=== PATIENT | female | born 1990 | race Caucasian/White ===

== ENCOUNTER 2017-06-23 18:59 | Outpatient (CLI) | payer MEDICAID ==
[2017-06-23] MEDS: ONDANSETRON 4 MG ORAL DISINTEGRATING TAB (S0181) SL (21:46)
== END 2017-06-23 22:35 | disposition home or self-care (01) ==
LOC: M LDO 18:59
DX: O99.89 Other specified diseases and conditions complicating pregnancy, childbirth and the puerperium (principal); Z3A.34 34 weeks gestation of pregnancy; R11.2 Nausea with vomiting, unspecified; R19.7 Diarrhea, unspecified
CPT/HCPCS: 59025

== ENCOUNTER → 2017-07-06 | Outpatient (REF) | payer BC | LOC: M LAB REF 12:56 | DX: Z34.83 Encounter for supervision of other normal pregnancy, third trimester (principal) ==

== ENCOUNTER → 2017-07-11 | Outpatient (CLI) | payer BC, MEDICAID ==
[2017-07-11 13:51] LABS: BASO % 0.2 % (0.0-1.0); EOS # 0.1 10^3/uL (0.0-0.50); EOS % 0.8 % (0.0-3.0); HEMATOCRIT 35.3 % (36.0-47.0); HEMOGLOBIN 11.3 g/dl (12.0-16.0); IMMATURE GRANULOCYTE % 0.4 % (0-3.0); LYMPH # 1.6 10^3/uL (1.5-6.5); LYMPH % 13.5 % (24.0-44.0); MEAN CORPUSCULAR HEMOGLOBIN 26.8 pg (27.0-33.0); MEAN CORPUSCULAR VOLUME 83.6 fl (80.0-96.0); MONO # 0.7 10^3/uL (0.0-0.8); MONO % 5.9 % (0.0-5.0); NEUTROPHILS # 9.1 10^3/uL (1.8-7.7); NEUTROPHILS % 79.2 % (36.0-66.0); PLATELET COUNT, AUTOMATED 244 10^3/uL (150-450); RED BLOOD COUNT 4.22 10^6/uL (4.00-5.40); RED CELL DISTRIBUTION WIDTH 15.6 % (11.5-14.5); WHITE BLOOD COUNT 11.5 10^3/uL (4.0-10.0)
[2017-07-11 14:15] LABS: RUBELLA IgG QUALITATIVE IMMUNE (IMMUNE)
[2017-07-11 14:18] LABS: GLUCOSE CHALLENGE TEST 1 HOUR 98 MG/DL (LESS THAN 140); HBsAg Prenatal NEGATIVE (NEGATIVE)
[2017-07-11 14:45] LABS: HEPATITIS C VIRUS ABY INDEX < 0.0 INDEX (<0.8)
[2017-07-11 14:46] LABS: HIV 1&2 SCREEN CENTAUR NEGATIVE (NEGATIVE)
== END ==
LOC: M SMT 10:14
DX: Z34.83 Encounter for supervision of other normal pregnancy, third trimester (principal)
CPT/HCPCS: 82950

== ENCOUNTER → 2017-11-29 | Outpatient (CLI) | payer OTHER | LOC: M LRY 16:55 | DX: M79.672 Pain in left foot (principal); R31.9 Hematuria, unspecified | CPT/HCPCS: 73630 ==

== ENCOUNTER → 2017-11-29 | Outpatient (REF) | payer OTHER | LOC: M SFHCLERA 16:50 | DX: R31.9 Hematuria, unspecified (principal) ==

== ENCOUNTER 2019-03-02 10:10 | Emergency (ER) | payer OTHER ==
[~2019-03-02] VITALS: Ht 162.6 cm; Wt 85.0 kg
[~2019-03-02 10:10] MED LIST: COLA100C5 PO; IBUP80TA PO; OXYC1TAB23 PO; PREN1TAB11 PO; RANI15TA PO; ROBI1LIQ PO; ZOFR4TAB14 PO
[2019-03-02] MEDS ORDERED: IBUPROFEN 800 MG TAB PO ONE (11:45)
[2019-03-02 12:49] LABS: BASO # 0.1 10^3/uL (0.0-0.2); BASO % 0.6 % (0.0-1.0); EOS # 0.2 10^3/uL (0.0-0.5); EOS % 2.3 % (0.0-3.0); HEMATOCRIT 45.5 % (36.0-47.0); HEMOGLOBIN 14.7 g/dl (12.0-15.5); LYMPH # 1.9 10^3/uL (1.5-5.0); LYMPH % 23.7 % (24.0-44.0); MEAN CORPUSCULAR HEMOGLOBIN 28.6 pg (27.0-33.0); MEAN CORPUSCULAR HGB CONC 32.3 g/dl (32.0-36.5); MEAN CORPUSCULAR VOLUME 88.5 fl (80.0-96.0); MONO # 0.4 10^3/uL (0.0-0.8); MONO % 5.6 % (0.0-5.0); NEUTROPHILS # 5.3 10^3/uL (1.5-8.5); NEUTROPHILS % 67.5 % (36.0-66.0); PLATELET COUNT, AUTOMATED 238 10^3/uL (150-450); RED BLOOD COUNT 5.14 10^6/uL (4.00-5.40); WHITE BLOOD COUNT 7.9 10^3/uL (4.0-10.0)
[2019-03-02 13:10] LABS: HCG, SERUM QUALITATIVE NEGATIVE (NEGATIVE)
[2019-03-02 13:16] LABS: ALBUMIN 4.2 GM/DL (3.2-5.2); ALT/SGPT 22 U/L (12-78); BILIRUBIN,DIRECT < 0.1 MG/DL (0.0-0.2); BILIRUBIN,TOTAL 0.4 MG/DL (0.2-1.0); BLOOD UREA NITROGEN 9 MG/DL (7-18); CALCIUM LEVEL 8.9 MG/DL (8.5-10.1); CARBON DIOXIDE LEVEL 27 MEQ/L (21-32); CHLORIDE LEVEL 107 MEQ/L (98-107); CREATININE FOR GFR 0.79 MG/DL (0.55-1.30); GLOMERULAR FILTRATION RATE > 60.0 (>60); GLUCOSE, FASTING 95 MG/DL (70-100); POTASSIUM SERUM 3.8 MEQ/L (3.5-5.1); SALICYLATE LEVEL 3.7 MG/DL (5.0-30.0); SODIUM LEVEL 140 MEQ/L (136-145); THYROID STIMULATING HORMONE 0.702 uIU/ML (0.358-3.740); TOTAL PROTEIN 7.5 GM/DL (6.4-8.2)
[2019-03-02 13:17] LABS: ACETAMINOPHEN LEVEL < 2.0 UG/ML (10.0-30.0); ETHYL ALCOHOL (ETHANOL) < 0.003 % (0.000-0.010)
[2019-03-02 13:40] LABS: AMPHETAMINES LEVEL URINE NEGATIVE (NEGATIVE); BARBITURATES URINE NEGATIVE (NEGATIVE); BENZODIAZEPINES URINE NEGATIVE (NEGATIVE); CANNABINOIDS URINE POSITIVE (NEGATIVE); COCAINE METABOLITE URINE NEGATIVE (NEGATIVE); METHADONE URINE NEGATIVE (NEGATIVE); OPIATES URINE NEGATIVE (NEGATIVE); PHENCYCLIDINE URINE NEGATIVE (NEGATIVE)
[2019-03-02 14:46] VITALS: BP 138/81
--- NOTE | 2019-03-02 19:10 | ECGEPIP ---
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
== END 2019-03-02 14:51 | disposition home or self-care (01) ==
LOC: M ED 10:10
DX: F33.9 Major depressive disorder, recurrent, unspecified (principal); T23.102A Burn of first degree of left hand, unspecified site, initial encounter; X12.XXXA Contact with other hot fluids, initial encounter; Y92.89 Other specified places as the place of occurrence of the external cause; F17.210 Nicotine dependence, cigarettes, uncomplicated
CPT/HCPCS: 36415; 80048; 80076; 80307; 84443; 84703; 85025; 93005; 99284; G0480

== ENCOUNTER → 2019-06-08 | Outpatient (REF) | payer OTHER, MEDICAID ==
[2019-06-08 14:10] LABS: HEMATOCRIT 47.9 % (36.0-47.0); HEMOGLOBIN 15.4 g/dl (12.0-15.5); MEAN CORPUSCULAR HEMOGLOBIN 28.4 pg (27.0-33.0); MEAN CORPUSCULAR HGB CONC 32.2 g/dl (32.0-36.5); MEAN CORPUSCULAR VOLUME 88.2 fl (80.0-96.0); PLATELET COUNT, AUTOMATED 225 10^3/uL (150-450); RED BLOOD COUNT 5.43 10^6/uL (4.00-5.40)
[2019-06-08 14:28] LABS: BLOOD UREA NITROGEN 12 MG/DL (7-18); CALCIUM LEVEL 9.6 MG/DL (8.5-10.1); CARBON DIOXIDE LEVEL 30 MEQ/L (21-32); CHLORIDE LEVEL 105 MEQ/L (98-107); CREATININE FOR GFR 0.77 MG/DL (0.55-1.30); GLOMERULAR FILTRATION RATE > 60.0 (>60); GLUCOSE, FASTING 80 MG/DL (70-100); POTASSIUM SERUM 4.2 MEQ/L (3.5-5.1); SODIUM LEVEL 139 MEQ/L (136-145)
[2019-06-08 14:29] LABS: ALBUMIN 4.7 GM/DL (3.2-5.2); ALT/SGPT 15 U/L (12-78); BILIRUBIN,TOTAL 0.7 MG/DL (0.2-1.0); THYROID STIMULATING HORMONE 0.673 uIU/ML (0.358-3.740); TOTAL PROTEIN 7.7 GM/DL (6.4-8.2)
== END ==
LOC: M SFHCPLAZ 10:10
PROVIDERS: ATTEND Nurse Practitioner Adult Health
DX: Z82.0 Family history of epilepsy and other diseases of the nervous system (principal); R53.1 Weakness

== ENCOUNTER → 2019-08-20 | Outpatient (CLI) | payer OTHER, MEDICAID ==
[2019-08-20 17:31] LABS: BLOOD UREA NITROGEN 9 MG/DL (7-18); GLOMERULAR FILTRATION RATE > 60.0 (>60); RHEUMATOID FACTOR QUANT < 10.0 IU/ML (<15.0)
[2019-08-20 17:42] LABS: FOLATE 12.8 NG/ML (>5.4); VITAMIN B12 LEVEL 281 PG/ML (247-911)
[2019-08-21 10:31] LABS: DRVV SCREEN 41.5 SEC
== END ==
LOC: M WUC 14:51
PROVIDERS: ATTEND Psychiatry & Neurology Neurology
DX: G35 Multiple sclerosis (principal)

== ENCOUNTER → 2019-10-26 | Outpatient (CLI) | payer OTHER, MEDICAID ==
--- NOTE | 2019-11-02 06:01 | ECWPNPC ---
PATIENT NAME: SABINE OKEEFE : 1990 GENDER: FEMALE VISIT DATE: 10/26/2019 DISCHARGE DATE: 10/26/19 1613 VISIT LOCKED DATE TIME: PHYSICIAN: ROGELIO SILVA MD RESOURCE: ROGELIO SILVA MD REASON FOR APPOINTMENT 1. PRE SEDATE- SPINAL TAP, PAT DONE HISTORY OF PRESENT ILLNESS GENERAL: 28-YEAR-OLD FEMALE PATIENT WITH A HISTORY OF MULTIPLE SCLEROSIS. THE PATIENT WAS REFERRED TO OUR FACILITY BY DR. MEADOWS FROM [facility] TO CONSIDER A SPINAL TAP. THE PATIENT HAS BEEN SUFFERING FROM SYMPTOMS SINCE 2009. THESE SYMPTOMS INCLUDE HEADACHES, BURRED VISION, BACK OUTS, LEG SPASMS, CRAMPS AND PAIN. THE PATIENT REPORTS MAINLY TINGLING OVER HER LEFT ARM AND LEFT LEG. PATIENT DENIES UNEXPLAINABLE WEIGHT LOSS, FEVER, CHILLS, NEW CHANGES ON HER URINARY OR BOWEL CONTROL. FALL RISK SCREENING: SCREENING :ONE FALL WITH INJURY IN THE PAST YEAR JANUARY - FELL IN SHOWER, HIT HEAD AND INJURED BACK, DID NOT SEEK MEDICAL ATTENTION PAIN SCREENING: PATIENT HAS A COMPLAINT OF ACUTE OR CHRONIC PAIN :YES LOCATION OF PAIN:LOW BACK INTENSITY OF PAIN (SCALE OF 1 TO 10):7 WHAT DOES YOUR PAIN FEEL LIKE:ACHING, INTERMITTENT, SHARP NURSING NOTE: -. PAIN CENTER INTAKE QUESTIONS: DO YOU HAVE A HISTORY OF MRSA? :NO DO YOU TAKE A BLOOD THINNERS? :NO DO YOU HAVE ANY BLEEDING DISORDERS? :NO ANY NEW NUMBNESS OR WEAKNESS IN YOUR LEGS OR ARMS? :NO ANY PACEMAKER,DEFIBRILLATOR, OR DORSAL COLUMN STIMULATOR? :NO DO YOU HAVE ANY RASHES OR OPEN SORES? :NO ARE YOU ALLERGIC TO IV DYE? :NO ARE YOU DIABETIC? :NO ANY NEW PROBLEMS WITH YOUR MEDICATIONS? :NO HAVE YOU RECEIVED A VACCINE IN THE PAST 30 DAYS? :NO DO YOU PLAN TO RECEIVE A VACCINE IN THE NEXT 21 DAYS? :NO DO YOU NEED ANY PRESCRIPTION? :NO DO YOU TAKE ANY IMMUNOSUPPRESSIVE MEDICATIONS? :NO IS THERE A CHANCE YOU COULD BE ? :NO ARE YOU BREAST FEEDING? :NO CURRENT MEDICATIONS TAKING FLUTICASONE PROPIONATE 50 MCG/ACT SUSPENSION 1 SPRAY IN EACH NOSTRIL NASALLY ONCE A DAY TAKING SUMATRIPTAN SUCCINATE 100 MG TABLET 1/2-1 TABLET ON THE ONSET OF HEADACHE MAY REPEAT ONCE AFTER 2 HOURS ORALLY DIRECTED, NOTES: NEUROLOGY TAKING TOPIRAMATE 50 MG TABLET 2 TABLETS ORALLY BEFORE BEDTIME TAKING DULOXETINE HCL 30 MG CAPSULE DELAYED RELEASE PARTICLES 1 CAPSULE ORALLY ONCE A DAY NOT-TAKING LORATADINE 10 MG CAPSULE 1 CAPSULE ORALLY ONCE A DAY NOT-TAKING DOXYCYCLINE MONOHYDRATE 100 MG TABLET 1 TABLET ORALLY BID NOT-TAKING DIFLUCAN 150 MG TABLET 1 TABLET ORALLY DIRECTED/ TODAY AND 1 IN 10 DAYS MEDICATION LIST REVIEWED AND RECONCILED WITH THE PATIENT PAST MEDICAL HISTORY SMOKER FATHER HAS DM2 PATERNAL AUNT AND GRANDFATHER HAD MS LARGE BABIES 9 LBS ALLERGIES N.K.D.A. SURGICAL HISTORY ABD CYST REMOVAL C SECTION X 2 TUBAL LIGATION 07/2017 CHOLECYSTECTOMY D&C TYMPONOSTOMY FAMILY HISTORY FATHER: ALIVE 55 YRS, DM2 MOTHER: ALIVE 53 YRS, HEALTHY SIBLINGS: ALIVE 36 YRS PATERNAL GRAND FATHER: , MS PATERNAL AUNT: , MS 1 SISTER(S) - HEALTHY. 2 SON(S) , 1 DAUGHTER(S) - HEALTHY. NO BROTHERS. SOCIAL HISTORY GENERAL: TOBACCO USE ARE YOU A:CURRENT SMOKER ARE YOU INTERESTED IN QUITTING?THINKING ABOUT QUITTING PREVIOUS QUIT ATTEMPTS?YES, MORE THAN 6 MONTHS AGO. COUNSELED THE PATIENT ON SMOKING CESSATION, EDUCATION APIRZYTM19/21/2020 HOW MANY CIGARETTES A DAY DO YOU SMOKE?6-10 HOW SOON AFTER YOU WAKE UP DO YOU SMOKE YOUR FIRST CIGARETTE?6-30 MIN HOW OFTEN DO YOU SMOKE CIGARETTES?EVERY DAY PATIENT COUNSELED ON THE DANGERS OF TOBACCO USE AND URGED TO QUIT:10/26/2019 SMOKING CESSATION INFORMATION GIVEN06/08/2019 LATEX QUESTIONNAIRE LATEX ALLERGY : HAVE YOU EVER DEVELOPED ANY TYPE OF REACTION AFTER HANDLING LATEX PRODUCTS SUCH RUBBER GLOVES, CONDOMS, DIAPHRAGMS, BALLOONS, SOCKS, OR UNDERWEAR?NO LATEX ALLERGY : HAVE YOU EVER DEVELOPED ANY TYPE OF REACTION DURING OR AFTER DENTAL APPOINTMENT, VAGINAL/RECTAL EXAMINATION, SURGICAL PROCEDURE, OR ANY OTHER EXPOSURE?NO LATEX RISK : HAVE YOU EVER HAD ANY DIFFICULTY BREATHING OR HIVES AFTER EATING OR HANDLING ANY FRUITS, OR VEGETABLES; SUCH KIWI, BANANAS, STONE FRUITS, OR CHESTNUTSNO LATEX RISK : DO YOU HAVE A PREVIOUS PERSONAL HISTORY OF MORE THAN NINE SURGERIES, SPINA BIFIDA, OR REPEATED CATHERIZATIONS? NO LATEX RISK : ARE YOU FREQUENTLY EXPOSED TO LATEX PRODUCTS IN YOUR OCCUPATION?NO DATE ASKED : 10/26/2019 ALCOHOL SCREENING DID YOU HAVE A DRINK CONTAINING ALCOHOL IN THE PAST YEAR?YES HOW OFTEN DID YOU HAVE SIX OR MORE DRINKS ON ONE OCCASION IN THE PAST YEAR?NEVER (0 POINTS) HOW MANY DRINKS DID YOU HAVE ON A TYPICAL DAY WHEN YOU WERE DRINKING IN THE PAST YEAR?1 OR 2 (0 POINTS) HOW OFTEN DID YOU HAVE A DRINK CONTAINING ALCOHOL IN THE PAST YEAR?MONTHLY OR LESS (1 POINT) POINTS1 INTERPRETATIONNEGATIVE RECREATIONAL DRUG USE DRUG USE?YES MARIJUANA HOW OFTEN AND HOW MUCH? ONCE A WEEK CAFFEINE CAFFEINE USE?YES 2 CUPS A DAY SEXUAL HX HAD SEX IN THE LAST 12 MONTHS (VAGINAL, ORAL, OR ANAL)?YES WITHMEN ONLY USE PROTECTION?NO LMP:04/2019 HAVE YOU EVER HAD AN STD?NO HIV / HEP-C SCREENING HIV TEST OFFERED TO PATIENT:YES DATE OFFERED:06/08/2019 TEST ACCEPTED:NO HEP-C TEST OFFERED TO PATIENT:YES DATE OFFERED:06/08/2019 REASON:OTHER (DOCUMENT IN NOTE) PATIENT TESTED NEGATIVE WITH 'S TEST ACCEPTED:NO REASON:PATIENT DECLINED BROCHURE PROVIDED TO PATIENTNO CONFUCIANIST [id number] NONE NO RASTAFARIAN BELIEFS THAT WOULD IMPACT HEALTH CARE. LANGUAGE LANGUAGES SPOKEN:SAMMARINESE EDUCATION LEVEL OF EDUCATION:NOT FINISHED COLLEGE LEARNING BARRIERS / SPECIAL NEEDS CHANGE FROM LAST VISIT? NEW PT WITH SVETA MICHAELS VINYL HANGER ON 05/2019 BARRIERS TO LEARNING?NO HEARING IMPAIRED?NO VISION IMPAIRED?YES COGNITIVELY IMPAIRED?NO :CORRECTIVE LENSES READINESS TO LEARN?YES LEARNING PREFERENCES?NO LEARNING CAPABILITIES PRESENT?YES EMOTIONAL BARRIERS?NO SPECIAL DEVICES?NO VASCULAR NURSE NEEDED?NO DOMESTIC VIOLENCE STATUS:PARTNERED 2016 DOES THE PATIENT DIVULGE THAT THE PARTNER HIT THEM?NO DOES THE PATIENT DIVULGE THAT THE PARTNER HITS THE CHILDREN IN THE HOUSEHOLD?NO DOES THE PATIENT CONSIDER THE PARTNER ABUSIVE?NO HAS THE PATIENT EVER BEEN IN A SITUATION INVOLVING DOMESTIC VIOLENCE?NO HAS THE PATIETN EVER BEEN INJURED, HOMEBOUND, OR HOSPITALIZED DUE TO AN ALTERCATION WITH SIGNIFICANT OTHER?NO DO YOU FEEL SAFE IN YOUR ENVIRONMENT?YES 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 DIET: REGULAR. EXERCISE: NONE. MARITAL STATUS: SINGLE/FIANCE. OTHERS AT HOME: FIANCE 3 CHILDREN. PAIN CLINIC PFS, CLERGY, PUBLIC HEALTH REFERRALS HAS THE PATIENT BEEN EDUCATED REGARDING HIS/HER PLAN OF CARE?YES HAS THE PATIENT BEEN EDUCATED REGARDING PAIN, THE RISK FOR PAIN, THE IMPORTANCE OF EFFECTIVE PAIN MANAGEMENT, AND THE PAIN ASSESSMENT PROCESS?YES HOUSING: RENTS APARTMENT. ADVANCE DIRECTIVE ADVANCE DIRECTIVE DISCUSSED WITH PATIENT:YES PT STATES THAT SHE DOES NOT HAVE A HCP AT THIS TIME, DECLINES ASSISTANCE WITH PAPERWORK HOSPITALIZATION/MAJOR DIAGNOSTIC PROCEDURE NO HOSPITALIZATION HISTORY. REVIEW OF SYSTEMS GLAUCOMA: NOTHYROID DISEASE: NOHYPERTENSION: NOHEART DISEASE: NOLUNG DISEASE: NODIABETES: NOGI DISEASE: NO LIVER DISEASE: NO KIDNEY DISEASE: NOSTEROID USE: NONEUROLOGICAL DISEASE: YES, MS AND DIFFERENT SENSATION OVER THE LEFT ARM AND LEFT LEG.BACK PROBLEMS: YES, PAINEXTREMITIES: YES, LEFT LEG AND LEFT ARM WEAKNESSGENITOURINARY: YES, PROBLEMS WITH URINATIONBLEEDING DISORDER: NOASA CLASS: [id number] CLASS: II. VITAL SIGNS WT 181.8 LBS, HT 64 IN, BMI 31.20 INDEX, BP 119/66 MM HG, HR 63 /MIN, RR 18 /MIN, TEMP 97.6 F, OXYGEN SAT % 97%, SAFE IN ENV? (Y/N) Y, NA INITIALS SC 14:01, REVIEWED BY: SAMANTA. EXAMINATION GENERAL: THE PATIENT IS ALERT, ORIENTED TIMES THREE AND COOPERATIVE. HEART SHOWS REGULAR RHYTHM, NO MURMURS AND NO GALLOPS. LUNGS ARE CLEAR TO AUSCULTATION. THE LEFT LEG IS WEAKER THAN THE RIGHT LEG IN FLEXION AND EXTENSION. IN THE PATIENT'S CHART THERE ARE SOME NOTES FROM DR. MEADOWS. ASSESSMENTS MULTIPLE SCLEROSIS - G35 (PRIMARY) TREATMENT MULTIPLE SCLEROSIS MEDICATION: FENTANYL CITRATE 25MCG IV (ORDERED FOR 10/30/2019)ALISTAIR ARRIAGA 10/30/2019 8:38:10 AM > LOT # [id number], EXP DATE 12/2020 NAVNEET PHAM RN 10/30/2019 8:53:37 AM > VERIFIED JACK LOJAISTAL 10/30/2019 09:16:01 AM - SECOND DOSE ORDERED, VERIFIED WITH EVANGELINA BHAT 10/30/2019 09:29:10 AM - THIRD DOSE ORDERED, VERIFIED WITH ALISTAIR HAUSER 10/30/2019 9:52:26 AM > 0925 GIVEN EVANGELINA LOJA 10/30/2019 10:21:08 AM - FIRST AND SECOND DOSE GIVEN TOGETHER EQUALING 50 MCG, SEE NOTE ABOVE. MEDICATION: VERSED 1MG IV (MIDAZOLAM) (ORDERED FOR 10/30/2019)ALISTAIR ARRIAGA 10/30/2019 8:39:35 AM > LOT # [id number], EXP. 11/16/2020 NAVNEET PHAM RN 10/30/2019 8:53:55 AM > VERIFIED EVANGELINA LOJA 10/30/2019 09:24:15 AM - SECOND DOSE ORDERED, VERIFIED WITH ALISTAIR HAUSER 10/30/2019 9:54:15 AM > GIVEN AT 9016 AND 2ND DOSE A 0924 OXYGEN AT 2 LITERS PER NASAL CANNULA (ORDERED FOR 10/30/2019)ALISTAIR ARRIAGA 10/30/2019 10:10:30 AM > APPLIED AT 0908 IV LACTATED RINGER'S AT KVO (ORDERED FOR 10/30/2019)GREY CABALLERO 10/30/2019 8:36:36 AM > 20G LEFT AC SL ESTABLISHED WITH LR AT KVO, 1 ATTEMPT EVANGELINA LOJA 10/30/2019 09:42:29 AM - 400 ML CLINICAL NOTES: WE DISCUSSED SEVERAL ALTERNATIVES WITH MS. OKEEFE REGARDING HER TREATMENT OPTIONS AND CARE. SHE WANTS TO MOVE FORWARD WITH THE SPINAL TAP WITH IV SEDATION DUE TO ANXIETY AND DISCOMFORT ASSOCIATED WITH THE PROCEDURE. I AM ORDERING SOME MEDICATIONS TO BE USED THAT DAY. THE PATIENT UNDERSTANDS AND IS IN AGREEMENT WITH THE TREATMENT PLAN. WE DISCUSSED POTENTIAL COMPLICATIONS INCLUDING INFECTIONS, NERVE DAMAGE, AND POST SPINAL HEADACHES. THE PATIENT AGREES WITH MOVING FORWARD. I, EVANGELINA LOJA, DOCUMENTED THE ABOVE INFORMATION ACTING A SCRIBE FOR DR. SILVA. I HAVE REVIEWED THE ABOVE DOCUMENT, WRITTEN BY EVANGELINA LOJA, FOOD ORDER EXPEDITER, AND I VERIFY THAT IT IS ACCURATE. PROCEDURE CODES FA211 ESTABILISHED PATIENT [facility] CHARGE DISPOSITION & COMMUNICATION FOLLOW UP SPINAL TAP (REASON: SPINAL TAP) ELECTRONICALLY SIGNED BY ROGELIO SILVA MD, MD ON 11/01/2019 AT 12:09 PM EDT DISCLAIMER : THIS IS A VISIT SUMMARY EXTRACTED FROM THE [employer] CHART. IT IS NOT A COPY OF THE [employer] [facility] PROGRESS NOTE. MTDD
== END ==
LOC: M PAIN 14:00
PROVIDERS: ATTEND Anesthesiology
DX: G35 Multiple sclerosis (principal)

== ENCOUNTER → 2019-10-26 | Outpatient (CLI) | payer OTHER, MEDICAID | LOC: M LABSMTC 13:15 | PROVIDERS: ATTEND Anesthesiology | DX: Z11.59 Encounter for screening for other viral diseases (principal) | CPT/HCPCS: C9803; U0003 ==

== ENCOUNTER → 2019-10-30 | Outpatient (CLI) | payer OTHER, MEDICAID ==
[~2019-10-30] MED LIST changes: +LIDOCAINE 1% SDV 30ML VIAL As Ordered ONE; +MIDAZOLAM INJ 2MG/2ML VIAL (J2250 PER 1MG) As Ordered ONE; +fentaNYL 100 MCG/2 ML INJECTION (J3010) As Ordered ONE
[2019-10-30 11:19] LABS: CSF TUBE# CELL CNT TUBE 3
[2019-10-30 11:20] LABS: APPEARANCE, CSF CLEAR (CLEAR); COLOR, CSF COLORLESS (COLORLESS)
[2019-10-30 11:52] LABS: CSF TUBE# GLU TUBE 1; CSF TUBE# TP TUBE 1; GLUCOSE CSF 62 MG/DL (40-75); TOTAL PROTEIN,CSF 33 MG/DL (15-45)
--- NOTE | 2019-10-31 01:34 | ECWPNPC ---
PATIENT NAME: SABINE OKEEFE : 1990 GENDER: FEMALE VISIT DATE: 10/30/2019 DISCHARGE DATE: 10/30/19 1010 VISIT LOCKED DATE TIME: PHYSICIAN: ROGELIO SILVA MD RESOURCE: ROGELIO SILVA MD REASON FOR APPOINTMENT 1. SPINAL TAP HISTORY OF PRESENT ILLNESS GENERAL: -. FALL RISK SCREENING: SCREENING :ONE FALL WITH INJURY IN THE PAST YEAR PT STATES THAT SHE HIT HEAD AND DISCUSSED WITH PCP 1 MONTH AFTER FALL, NO EMERGENT CARE GIVEN PAIN SCREENING: PATIENT HAS A COMPLAINT OF ACUTE OR CHRONIC PAIN :YES LOCATION OF PAIN:MID BACK, LOW BACK INTENSITY OF PAIN (SCALE OF 1 TO 10):7 WHAT DOES YOUR PAIN FEEL LIKE:BURNING, INTERMITTENT, SHARP, STABBING, TENDER, THROBBING, SORE, SHOOTING NURSING NOTE: -. PAIN CENTER INTAKE QUESTIONS: DO YOU HAVE A HISTORY OF MRSA? :NO DO YOU TAKE A BLOOD THINNERS? :NO DO YOU HAVE ANY BLEEDING DISORDERS? :NO ANY NEW NUMBNESS OR WEAKNESS IN YOUR LEGS OR ARMS? :NO ANY PACEMAKER,DEFIBRILLATOR, OR DORSAL COLUMN STIMULATOR? :NO DO YOU HAVE ANY RASHES OR OPEN SORES? :NO ARE YOU ALLERGIC TO IV DYE? :NO ARE YOU DIABETIC? :NO ANY NEW PROBLEMS WITH YOUR MEDICATIONS? :NO HAVE YOU RECEIVED A VACCINE IN THE PAST 30 DAYS? :NO DO YOU PLAN TO RECEIVE A VACCINE IN THE NEXT 21 DAYS? :NO DO YOU TAKE ANY IMMUNOSUPPRESSIVE MEDICATIONS? :NO ANY HISTORY OF SEIZURES? :NO ANY HISTORY OF CARDIAC ISSUES OR EVENTS? :NO DO YOU HAVE SLEEP APNEA? :NO ANY RECENT HEAD INJURY? :YES FELL IN JANUARY, DISCUSSED WITH PCP, NO EMERGENT CARE RECIEVED DO YOU HAVE ANY NEW INFECTIONS? :NO IS THERE A CHANCE YOU COULD BE ? :NO ARE YOU BREAST FEEDING? :NO WHEN DID YOU LAST EAT? : -10/28 6P WHEN DID YOU LAST DRINK? : -10/29 6AM WHAT DID YOU LAST DRINK? : -BLACK COFFEE NAME OF PERSON DRIVING YOU HOME? : -FATHER -MARCELLA DO YOU HAVE ANY OTHER QUESTIONS OR CONCERNS? : - CURRENT MEDICATIONS TAKING FLUTICASONE PROPIONATE 50 MCG/ACT SUSPENSION 1 SPRAY IN EACH NOSTRIL NASALLY ONCE A DAY, NOTES: 10/27 TAKING SUMATRIPTAN SUCCINATE 100 MG TABLET 1/2-1 TABLET ON THE ONSET OF HEADACHE MAY REPEAT ONCE AFTER 2 HOURS ORALLY DIRECTED, NOTES: NEUROLOGY 10/28 7P TAKING TOPIRAMATE 50 MG TABLET 2 TABLETS ORALLY BEFORE BEDTIME, NOTES: 1 WEEK TAKING DULOXETINE HCL 30 MG CAPSULE DELAYED RELEASE PARTICLES 1 CAPSULE ORALLY ONCE A DAY, NOTES: 10/28 7P TAKING CYCLOBENZAPRINE HCL 10 MG TABLET 1 TABLET AT BEDTIME NEEDED ORALLY ONCE A DAY, NOTES: 10/28 7P NOT-TAKING LORATADINE 10 MG CAPSULE 1 CAPSULE ORALLY ONCE A DAY NOT-TAKING DOXYCYCLINE MONOHYDRATE 100 MG TABLET 1 TABLET ORALLY BID NOT-TAKING DIFLUCAN 150 MG TABLET 1 TABLET ORALLY DIRECTED/ 1 TODAY AND 1 IN 10 DAYS PAST MEDICAL HISTORY SMOKER FATHER HAS DM2 PATERNAL AUNT AND GRANDFATHER HAD MS LARGE BABIES 9 LBS ALLERGIES N.K.D.A. SURGICAL HISTORY ABD CYST REMOVAL C SECTION X 2 TUBAL LIGATION 07/2017 CHOLECYSTECTOMY D&C TYMPONOSTOMY FAMILY HISTORY FATHER: ALIVE 55 YRS, DM2 MOTHER: ALIVE 53 YRS, HEALTHY SIBLINGS: ALIVE 36 YRS PATERNAL GRAND FATHER: , MS PATERNAL AUNT: , MS 1 SISTER(S) - HEALTHY. 2 SON(S) , 1 DAUGHTER(S) - HEALTHY. NO BROTHERS. SOCIAL HISTORY GENERAL: TOBACCO USE ARE YOU A:CURRENT SMOKER ARE YOU INTERESTED IN QUITTING?THINKING ABOUT QUITTING PREVIOUS QUIT ATTEMPTS?YES, MORE THAN 6 MONTHS AGO. COUNSELED THE PATIENT ON SMOKING CESSATION, EDUCATION [id number]/21/2020 HOW MANY CIGARETTES A DAY DO YOU SMOKE?6-10 HOW SOON AFTER YOU WAKE UP DO YOU SMOKE YOUR FIRST CIGARETTE?6-30 MIN HOW OFTEN DO YOU SMOKE CIGARETTES?EVERY DAY PATIENT COUNSELED ON THE DANGERS OF TOBACCO USE AND URGED TO QUIT:10/30/2019 SMOKING CESSATION INFORMATION GIVEN06/08/2019 LATEX QUESTIONNAIRE LATEX ALLERGY : HAVE YOU EVER DEVELOPED ANY TYPE OF REACTION AFTER HANDLING LATEX PRODUCTS SUCH RUBBER GLOVES, CONDOMS, DIAPHRAGMS, BALLOONS, SOCKS, OR UNDERWEAR?NO LATEX ALLERGY : HAVE YOU EVER DEVELOPED ANY TYPE OF REACTION DURING OR AFTER DENTAL APPOINTMENT, VAGINAL/RECTAL EXAMINATION, SURGICAL PROCEDURE, OR ANY OTHER EXPOSURE?NO LATEX RISK : HAVE YOU EVER HAD ANY DIFFICULTY BREATHING OR HIVES AFTER EATING OR HANDLING ANY FRUITS, OR VEGETABLES; SUCH KIWI, BANANAS, STONE FRUITS, OR CHESTNUTSNO LATEX RISK : DO YOU HAVE A PREVIOUS PERSONAL HISTORY OF MORE THAN NINE SURGERIES, SPINA BIFIDA, OR REPEATED CATHERIZATIONS? NO LATEX RISK : ARE YOU FREQUENTLY EXPOSED TO LATEX PRODUCTS IN YOUR OCCUPATION?NO DATE ASKED : 10/30/2019 ALCOHOL SCREENING DID YOU HAVE A DRINK CONTAINING ALCOHOL IN THE PAST YEAR?YES HOW OFTEN DID YOU HAVE SIX OR MORE DRINKS ON ONE OCCASION IN THE PAST YEAR?NEVER (0 POINTS) HOW MANY DRINKS DID YOU HAVE ON A TYPICAL DAY WHEN YOU WERE DRINKING IN THE PAST YEAR?1 OR 2 (0 POINTS) HOW OFTEN DID YOU HAVE A DRINK CONTAINING ALCOHOL IN THE PAST YEAR?MONTHLY OR LESS (1 POINT) POINTS1 INTERPRETATIONNEGATIVE RECREATIONAL DRUG USE DRUG USE?YES MARIJUANA HOW OFTEN AND HOW MUCH? ONCE A WEEK CAFFEINE CAFFEINE USE?YES 2 CUPS A DAY SEXUAL HX HAD SEX IN THE LAST 12 MONTHS (VAGINAL, ORAL, OR ANAL)?YES WITHMEN ONLY USE PROTECTION?NO LMP:04/2019 HAVE YOU EVER HAD AN STD?NO HIV / HEP-C SCREENING HIV TEST OFFERED TO PATIENT:YES DATE OFFERED:06/08/2019 TEST ACCEPTED:NO HEP-C TEST OFFERED TO PATIENT:YES DATE OFFERED:06/08/2019 REASON:OTHER (DOCUMENT IN NOTE) PATIENT TESTED NEGATIVE WITH 'S TEST ACCEPTED:NO REASON:PATIENT DECLINED BROCHURE PROVIDED TO PATIENTNO PENTECOSTALISM [id number] NONE NO YARSANI BELIEFS THAT WOULD IMPACT HEALTH CARE. LANGUAGE LANGUAGES SPOKEN:NIGERIAN EDUCATION LEVEL OF EDUCATION:NOT FINISHED COLLEGE LEARNING BARRIERS / SPECIAL NEEDS CHANGE FROM LAST VISIT? NEW PT WITH SVETA MICHAELS SILK PRESSER ON 05/2019 BARRIERS TO LEARNING?NO HEARING IMPAIRED?NO VISION IMPAIRED?YES COGNITIVELY IMPAIRED?NO :CORRECTIVE LENSES READINESS TO LEARN?YES LEARNING PREFERENCES?NO LEARNING CAPABILITIES PRESENT?YES EMOTIONAL BARRIERS?NO SPECIAL DEVICES?NO MANAGER MONITORING NEEDED?NO DOMESTIC VIOLENCE STATUS:PARTNERED 2016 DOES THE PATIENT DIVULGE THAT THE PARTNER HIT THEM?NO DOES THE PATIENT DIVULGE THAT THE PARTNER HITS THE CHILDREN IN THE HOUSEHOLD?NO DOES THE PATIENT CONSIDER THE PARTNER ABUSIVE?NO HAS THE PATIENT EVER BEEN IN A SITUATION INVOLVING DOMESTIC VIOLENCE?NO HAS THE PATIETN EVER BEEN INJURED, HOMEBOUND, OR HOSPITALIZED DUE TO AN ALTERCATION WITH SIGNIFICANT OTHER?NO DO YOU FEEL SAFE IN YOUR ENVIRONMENT?YES 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 DIET: REGULAR. EXERCISE: NONE. MARITAL STATUS: SINGLE/FIANCE. OTHERS AT HOME: FIANCE 3 CHILDREN. PAIN CLINIC PFS, CLERGY, PUBLIC HEALTH REFERRALS HAS THE PATIENT BEEN EDUCATED REGARDING HIS/HER PLAN OF CARE?YES HAS THE PATIENT BEEN EDUCATED REGARDING PAIN, THE RISK FOR PAIN, THE IMPORTANCE OF EFFECTIVE PAIN MANAGEMENT, AND THE PAIN ASSESSMENT PROCESS?YES HOUSING: RENTS APARTMENT. ADVANCE DIRECTIVE ADVANCE DIRECTIVE DISCUSSED WITH PATIENT:YES PT STATES THAT SHE DOES NOT HAVE A HCP AT THIS TIME, DECLINES ASSISTANCE WITH PAPERWORK HOSPITALIZATION/MAJOR DIAGNOSTIC PROCEDURE NO HOSPITALIZATION HISTORY. VITAL SIGNS WT 180 LBS, HT 64 IN, BMI 30.89 INDEX, BP 129/76 MM HG, HR 84 /MIN, RR 17 /MIN, TEMP 96.6 F, OXYGEN SAT % 97%, SAFE IN ENV? (Y/N) Y, NA INITIALS SC 08:22, REVIEWED BY: SAMANTA. EXAMINATION GENERAL EXAMINATION: A HISTORY AND PHYSICAL EXAM ON THE PATIENT WAS DONE ON 10/26/2019 (DATE OF ORIGINAL ASSESSMENT) IN PREPARATION OF SURGERY/PROCEDURE. I HAVE NOW REASSESSED THIS PATIENT'S HEALTH STATUS AND PERFORMED AN UPDATED EXAM TODAY. ALL CHANGES IN THE PATIENT'S HISTORY, PHYSICAL EXAM, PRE-EXISTING CONDITONS, AND INDICATIONS/CONTRAINDICATIONS TO THE PLANNED PROCEDURE AND ANESTHESIA ARE DOCUMENTED AND EVALUATED BELOW. I ATTEST TO THE ADEQUACY AND APPROPRIATENESS OF MY ASSESSMENT, AND CONFIRM THE NECESSITY FOR THE PLANNED PROCEDURE. THE PATIENT IS ALERT, ORIENTED TIMES THREE AND COOPERATIVE. HEART SHOWS REGULAR RHYTHM, NO MURMURS AND NO GALLOPS. LUNGS ARE CLEAR TO AUSCULTATION. ASSESSMENTS MULTIPLE SCLEROSIS - G35 (PRIMARY) TREATMENT MULTIPLE SCLEROSIS MEDICATION: FENTANYL CITRATE 50MCG IV ALISTAIR ARRIAGA 10/30/2019 9:56:04 AM > GIVEN AT 0917 AND 2ND DOSE @ 0924 MEDICATION: FENTANYL CITRATE 25MCG IVDEALISTAIR SRINIVASAN 10/30/2019 8:38:10 AM > LOT # [id number], EXP DATE 12/2020 NAVNEET PHAM, RN 10/30/2019 8:53:37 AM > VERIFIED EVANGELINA LOJA 10/30/2019 09:16:01 AM - SECOND DOSE ORDERED, VERIFIED WITH EVANGELINA BHAT 10/30/2019 09:29:10 AM - THIRD DOSE ORDERED, VERIFIED WITH ALISTAIR HAUSER 10/30/2019 9:52:26 AM > 0925 GIVEN EVANGELINA LOJA 10/30/2019 10:21:08 AM - FIRST AND SECOND DOSE GIVEN TOGETHER EQUALING 50 MCG, SEE NOTE ABOVE. MEDICATION: VERSED 1MG IV (MIDAZOLAM)ALISTAIR ARRIAGA 10/30/2019 8:39:35 AM > LOT # [id number], EXP. 11/16/2020 NAVNEET PHAM RN 10/30/2019 8:53:55 AM > VERIFIED EVANGELINA LOJA 10/30/2019 09:24:15 AM - SECOND DOSE ORDERED, VERIFIED WITH ALISTAIR HAUSER 10/30/2019 9:54:15 AM > GIVEN AT 9016 AND 2ND DOSE A 0924 OXYGEN AT 2 LITERS PER NASAL CANNULAALISTAIR ARRIAGA 10/30/2019 10:10:30 AM > APPLIED AT 0908 IV LACTATED RINGER'S AT [facility] 10/30/2019 8:36:36 AM > 20G LEFT AC SL ESTABLISHED WITH LR AT [facility], 1 ATTEMPT EVANGELINA LOJA 10/30/2019 09:42:29 AM - 400 ML PROCEDURES PAIN NURSING RECORD PRE-PROCEDURE IV SITE LEFT ANTECUBITAL, IV STARTED # 20, IV STARTED BY: SHAMAR TEMPLE, IV ATTEMPTS 1, PRE-PROCEDURE ORAL MEDICATIONS NO ORAL MEDS PROCEDURE IN ROOM 0905, PHYSICIAN IN ROOM 0914, START 0923, FINISH 0941, PHYSICIAN OUT OF ROOM 0949, OUT OF ROOM 0953, STEROID N/A, O2 NC 2 LPM, ECG NORMAL SINUS, PATIENT SHIELDED NO, SAFETY STRAP NO, PREP BETADINE, IV INFUSED LACTATED RINGERS, DRESSING TEGADERM MD SILVA LOC: NAVNEET PHAM RN 10/30/2019 9:14:57 AM > , 1. ALERT, ORIENTED , NAVNEET PHAM RN 10/30/2019 9:21:03 AM > , 2. DROWSY, RESPONDS APPROPRIATELY , NAVNEET PHAM RN 10/30/2019 9:53:33 AM > , 1. ALERT, ORIENTED RESP: NAVNEET PHAM RN 10/30/2019 9:15:00 AM > , 1. REGULAR, NO DYSPNEA, NAVNEET PHAM RN 10/30/2019 9:21:25 AM > , 1. REGULAR, NO DYSPNEA, NAVNEET PHAM RN 10/30/2019 9:53:38 AM > , 1. REGULAR, NO DYSPNEA COLOR: NAVNEET PHAM, RN 10/30/2019 9:15:04 AM > , 1. PINK, NAVNEET PHAM, RN 10/30/2019 9:21:36 AM > , 1. PINK, NAVNEET PHAM, RN 10/30/2019 9:53:43 AM > , 1. PINK SKIN: NAVNEET PHAM, RN 10/30/2019 9:15:07 AM > , 1. WARM, DRY, NAVNEET PHAM, RN 10/30/2019 9412:47 AM > , 1. WARM, DRY, NAVNEET PHAM, RN 10/30/2019 9:53:47 AM > , 1. WARM, DRY POSITION: NAVNEET PHAM, RN 10/30/2019 9:15:09 AM > , , 3. LATERAL, NAVNEET PHAM, RN 10/30/2019 9:53:53 AM > , 4. OTHER, UPRIGHT VITALS: NAVNEET PHAM, RN 10/30/2019 9:15:15 AM > 108/51, 59, 18, 100% , NAVNEET PHAM, RN 10/30/2019 9:16:46 AM > VERSED 1MG ADMINISTERED , NAVNEET PHAM, RN 10/30/2019 9:16:55 AM > FENTANYL 50MCG ADMINISTERED , NAVNEET PHAM, RN 10/30/2019 9:20:55 AM > 113/58, 62, 18, 98% , NAVNEET PHAM, RN 10/30/2019 9:24:17 AM > VERSED 1MG ADMINISTERED , NAVNEET PHAM, RN 10/30/2019 9:24:40 AM > FENTANYL 50MCG ADMINISTERED , NAVNEET PHAM, RN 10/30/2019 9:25:32 AM > 98/55, 59, 18, 97% , NAVNEET PHAM, RN 10/30/2019 9:29:43 AM > FENTANYL 25MCG ADMINISTERED , NAVNEET PHAM, RN 10/30/2019 9:30:03 AM > 102/54, 58, 18, 97% , NAVNEET PHAM RN 10/30/2019 9:35:42 AM > 106/60, 65, 18, 96% , NAVNEET PHAM RN 10/30/2019 9:40:10 AM > 109/62, 73, 18, 96% GREY CABALLERO 10/30/2019 10:00:49 AM > 123/60, 59, 18, 98% RA POST PROCEDURE DISCHARGE: POST PAIN 2/10 LOW BACK, DRESSING SITE DRY AND INTACT, IV DISCONTINUED, SITE CLEAR, CATHETER INTACT, GAIT STEADY, TEACHING COMPLETED, PATIENT ACKNOWLEDGES UNDERSTANDING YES DISCHARGE INSTRUCTIONS REVIEWED WITH PT. AND SHE VERBALIZED UNDERSTANDING., PATIENT DISCHARGED AT 1009 PRE PROCEDURE DIAGNOSIS MULTIPLE SCLEROSIS PROTOCOL PROCEDURE SPINAL TAP PRE PROCEDURE NOTE PATIENT INTERVIEWED, EXAMINATIONS AND TREATMENT QUESTIONNAIRES WERE REVIEWED. PROCEDURE AND RISKS AND BENEFITS WERE DISCUSSED WITH PATIENT DESCRIPTION OF PROCEDURE AFTER CONSENT WAS REVIEWED WITH THE PATIENT, WE TOOK THE PATIENT TO THE PROCEDURE ROOM. A TIMEOUT WAS PERFORMED WHERE LATERALITY AND THE SITE OF THE PROCEDURE WERE CHECKED AND CONFIRMED WITH EVERYONE IN THE ROOM. THE PATIENT WAS PLACED IN THE LEFT LATERAL POSITION. THE AREA WAS PREPPED WITH BETADINE IN STERILE FASHION. LOCAL INFILTRATE 1% LIDOCAINE AT THE L4-L5 INTERSPACE. A 20-GAUGE QUINCKE NEEDLE WAS ADVANCED UNTIL THE DURA WAS FELT AND CSF IS FREE-FLOWING. THERE WAS NO BLOOD RETURN ENCOUNTERED. THERE WAS NO PARAESTHESIA ENCOUNTERED. OPENING PRESSURE WAS MEASURED AT 33 CM OF WATER. 4 VIALS X 3.0 CC OF CSF WAS COLLECTED. CSF WAS DESCRIPTION WAS CLEAR. CSF SENT FOR STUDIES ORDERED BY REFERRING PHYSICIAN. VITAL SIGNS WERE STABLE. THERE WERE NO COMPLICATIONS. ESTIMATED BLOOD LOSS WAS LESS THAN 5 ML. IV SEDATION START TIME: 916 IV SEDATION END TIME: 943 TOTAL MOUF-IV-KJDS TIME: 27 MINUTES POST PROCEDURE NOTE DISCHARGE WHEN PATIENT MEETS CRITERIA PATIENT WILL FOLLOW UP WITH DR. MEADOWS AND CALL OUR OFFICE NEEDED PROCEDURE CODES 96511 SPINAL FLUID TAP DIAGNOSTIC 85206 MOD SED SAME PHYS/QHP 5/>YRS 84683 MOD SED SAME PHYS/QHP EA DISPOSITION & COMMUNICATION FOLLOW UP F/UP WITH NEUROLOGIST (REASON: POST SPINAL TAP) ELECTRONICALLY SIGNED BY ROGELIO SILVA MD, MD ON 10/30/2019 AT 11:03 AM EDT DISCLAIMER : THIS IS A VISIT SUMMARY EXTRACTED FROM THE [facility] CHART. IT IS NOT A COPY OF THE [facility] PROGRESS NOTE. MTDD
== END ==
LOC: M PAIN 08:00
PROVIDERS: ATTEND Anesthesiology
DX: G35 Multiple sclerosis (principal)
CPT/HCPCS: 36415; 62270; 82784; 82945; 83916; 84157; 87070; 87102; 87205; 87252; 87483; 88108; 88313; 89050; 99152; 99153; J2250; J3010

== ENCOUNTER 2019-11-11 19:52 | Observation (INO) | payer OTHER, MEDICAID ==
[~2019-11-11 19:52] MED LIST changes: -LIDOCAINE 1% SDV 30ML VIAL As Ordered ONE; -MIDAZOLAM INJ 2MG/2ML VIAL (J2250 PER 1MG) As Ordered ONE; -fentaNYL 100 MCG/2 ML INJECTION (J3010) As Ordered ONE
[2019-11-12] MEDS ORDERED: ENOXAPARIN 40MG/0.4ML SYRINGE (J1650 PER 10MG) ONE (09:18)
[2019-11-12] MEDS ORDERED: ACETAMINOPHEN TAB 650MG DOSE (2X325MG) ONE (09:18)
[2019-11-12] MEDS ORDERED: ENOXAPARIN 40MG/0.4ML SYRINGE (J1650 PER 10MG) As Ordered ONE (09:18)
[2019-11-12] MEDS ORDERED: ACETAMINOPHEN 325 MG TAB ONE (09:18)
[2019-11-12] MEDS ORDERED: ACETAMINOPHEN TAB 650MG DOSE (2X325MG) As Ordered ONE (09:18)
[2019-11-12] MEDS ORDERED: ACETAMINOPHEN 325 MG TAB As Ordered ONE (23:15)
[2019-11-13] MEDS ORDERED: ACETAMINOPHEN TAB 650MG DOSE (2X325MG) As Ordered ONE ×2 (04:20→20:14)
[2019-11-13] MEDS ORDERED: ENOXAPARIN 40MG/0.4ML SYRINGE (J1650 PER 10MG) As Ordered ONE (08:57)
[2019-11-13] MEDS ORDERED: tiZANidine 4 MG TAB As Ordered ONE (17:37)
[2019-11-13] MEDS ORDERED: DULoxetine 30 MG CAP (CYMBALTA) As Ordered ONE (17:37)
[2019-11-13] MEDS ORDERED: PROHANCE 279.3MG/ML 5ML VIAL As Ordered ONE (18:50)
[2019-11-13] MEDS ORDERED: PROHANCE 279.3MG/ML 15ML VIAL As Ordered ONE (18:50)
[2019-11-13] MEDS ORDERED: TOPIRAMATE (TopAMAX) 100 MG TAB As Ordered ONE (20:14)
[2019-11-13] MEDS ORDERED: ASCORBIC ACID 500 MG TAB As Ordered ONE (20:15)
[2019-11-14] MEDS ORDERED: tiZANidine 4 MG TAB As Ordered ONE (08:07)
[2019-11-14] MEDS ORDERED: ENOXAPARIN 40MG/0.4ML SYRINGE (J1650 PER 10MG) ONE (08:07)
[2019-11-14] MEDS ORDERED: ASCORBIC ACID 500 MG TAB ONE (08:07)
[2019-11-14] MEDS ORDERED: DULoxetine 30 MG CAP (CYMBALTA) ONE (08:07)
[2019-11-14] MEDS ORDERED: tiZANidine 4 MG TAB ONE (08:07)
[2019-11-14] MEDS ORDERED: DULoxetine 30 MG CAP (CYMBALTA) As Ordered ONE (08:08)
[2019-11-14] MEDS ORDERED: ASCORBIC ACID 500 MG TAB As Ordered ONE (08:08)
[2019-11-14] MEDS ORDERED: ENOXAPARIN 40MG/0.4ML SYRINGE (J1650 PER 10MG) As Ordered ONE (08:08)
[2019-11-14] MEDS ORDERED: ACETAMINOPHEN TAB 650MG DOSE (2X325MG) As Ordered ONE (11:21)
[2019-11-14] MEDS ORDERED: ACETAMINOPHEN TAB 650MG DOSE (2X325MG) ONE (11:21)
[2019-12-18 09:59] LABS: ACETAMINOPHEN LEVEL < 2.0 UG/ML (10.0-30.0); ALBUMIN 4.5 GM/DL (3.2-5.2); ALT/SGPT 14 U/L (12-78); BILIRUBIN,DIRECT < 0.1 MG/DL (0.0-0.2); BILIRUBIN,TOTAL 0.3 MG/DL (0.2-1.0); BLOOD UREA NITROGEN 14 MG/DL (7-18); CALCIUM LEVEL 9.4 MG/DL (8.5-10.1); CARBON DIOXIDE LEVEL 25 MEQ/L (21-32); CHLORIDE LEVEL 110 MEQ/L (98-107); CREATININE FOR GFR 1.26 MG/DL (0.55-1.30); ETHYL ALCOHOL (ETHANOL) < 0.003 % (0.000-0.010); GLOMERULAR FILTRATION RATE 53.1 (>60); GLUCOSE, FASTING 108 MG/DL (70-100); POTASSIUM SERUM 4.8 MEQ/L (3.5-5.1); SALICYLATE LEVEL 7.6 MG/DL (5.0-30.0); SODIUM LEVEL 139 MEQ/L (136-145); TOTAL PROTEIN 7.8 GM/DL (6.4-8.2)
[2019-12-18 10:00] LABS: AMPHETAMINES LEVEL URINE NEGATIVE (NEGATIVE); BARBITURATES URINE NEGATIVE (NEGATIVE); BENZODIAZEPINES URINE NEGATIVE (NEGATIVE); CANNABINOIDS URINE POSITIVE (NEGATIVE); COCAINE METABOLITE URINE NEGATIVE (NEGATIVE); METHADONE URINE NEGATIVE (NEGATIVE); OPIATES URINE NEGATIVE (NEGATIVE); PHENCYCLIDINE URINE NEGATIVE (NEGATIVE)
[2019-12-18 10:01] LABS: HCG, SERUM QUALITATIVE NEGATIVE (NEGATIVE); OSMOLALITY SERUM 304 MOSM/KG (275-295)
[2019-12-24 23:09] LABS: HEMATOCRIT 42.9 % (36.0-47.0); HEMOGLOBIN 14.5 g/dl (12.0-15.5); MEAN CORPUSCULAR HEMOGLOBIN 29.3 pg (27.0-33.0); MEAN CORPUSCULAR HGB CONC 33.8 g/dl (32.0-36.5); MEAN CORPUSCULAR VOLUME 86.7 fl (80.0-96.0); PLATELET COUNT, AUTOMATED 196 10^3/uL (150-450); RED BLOOD COUNT 4.95 10^6/uL (4.00-5.40); WHITE BLOOD COUNT 8.1 10^3/uL (4.0-10.0)
[2019-12-27 18:29] LABS: BLOOD UREA NITROGEN 11 MG/DL (7-18); CALCIUM LEVEL 8.4 MG/DL (8.5-10.1); CARBON DIOXIDE LEVEL 23 MEQ/L (21-32); CHLORIDE LEVEL 112 MEQ/L (98-107); CREATININE FOR GFR 0.79 MG/DL (0.55-1.30); GLOMERULAR FILTRATION RATE > 60.0 (>60); GLUCOSE, FASTING 93 MG/DL (70-100); POTASSIUM SERUM 3.6 MEQ/L (3.5-5.1); SODIUM LEVEL 144 MEQ/L (136-145)
[2020-01-03 10:59] LABS: BASO # 0.1 10^3/uL (0.0-0.2); BASO % 0.6 % (0.0-1.0); EOS # 0.3 10^3/uL (0.0-0.5); EOS % 2.4 % (0.0-3.0); HEMATOCRIT 47.8 % (36.0-47.0); HEMOGLOBIN 15.7 g/dl (12.0-15.5); LYMPH # 3.5 10^3/uL (1.5-5.0); LYMPH % 27.9 % (24.0-44.0); MEAN CORPUSCULAR HEMOGLOBIN 28.6 pg (27.0-33.0); MEAN CORPUSCULAR HGB CONC 32.8 g/dl (32.0-36.5); MEAN CORPUSCULAR VOLUME 87.2 fl (80.0-96.0); MONO # 0.8 10^3/uL (0.0-0.8); MONO % 6.2 % (0.0-5.0); NEUTROPHILS # 7.9 10^3/uL (1.5-8.5); NEUTROPHILS % 62.6 % (36.0-66.0); PLATELET COUNT, AUTOMATED 259 10^3/uL (150-450); RED BLOOD COUNT 5.48 10^6/uL (4.00-5.40); WHITE BLOOD COUNT 12.7 10^3/uL (4.0-10.0)
[2020-01-03 12:15] LABS: AMORPHOUS SEDIMENT SMALL (NEGATIVE); APPEARANCE, URINE CLOUDY (CLEAR); BACTERIA, URINE AUTO NEGATIVE (NEGATIVE); BILIRUBIN, URINE AUTO NEGATIVE (NEGATIVE); BLOOD, URINE BLOOD NEGATIVE (NEGATIVE); COLOR, URINE YELLOW (YELLOW); GLUCOSE, URINE (UA) AUTO NEGATIVE (NEGATIVE); KETONE, URINE AUTO NEGATIVE (NEGATIVE); LEUKOCYTE ESTERASE, URINE AUTO NEGATIVE (NEGATIVE); MUCUS, URINE SMALL (NEGATIVE); NITRITE, URINE AUTO NEGATIVE (NEGATIVE); PROTEIN, URINE AUTO NEGATIVE (NEGATIVE); RBC, URINE AUTO 4 /HPF (0-3); SPECIFIC GRAVITY URINE AUTO 1.014 (1.002-1.035); SQUAMOUS EPITHELIAL CELL UR AU 2 /HPF (0-6); UROBILINOGEN, URINE AUTO 0.2 mg/dL (0.0-2.0); WBC, URINE AUTO 1 /HPF (0-3)
--- NOTE | 2020-01-04 07:27 | ECGEPIP ---
SINUS TACHYCARDIA NONSPECIFIC ST & T-WAVE CHANGES SEE SCANNED DOWNTIME REPORT MTDD
--- NOTE | 2020-01-07 09:59 | REP ---
SINGLE VIEW CHEST X-RAY: HISTORY: Unavailable. This report was delayed due to a malware attack on this facility. COMPARISON: None. FINDINGS: The lungs are well-inflated and clear. The pleural angles are sharp. The heart size is normal. Pulmonary vasculature is not increased. No sign bony abnormality. IMPRESSION: No active disease. MTDD
== END 2019-11-14 13:48 | disposition home or self-care (01) ==
LOC: M ED 19:52 → M PCU 11-12 04:00
PROVIDERS: ADMIT Internal Medicine; ATTEND Internal Medicine
DX: G93.40 Encephalopathy, unspecified (principal); R20.0 Anesthesia of skin; G35 Multiple sclerosis; N17.9 Acute kidney failure, unspecified; R41.82 Altered mental status, unspecified; R00.0 Tachycardia, unspecified; F12.10 Cannabis abuse, uncomplicated; M62.830 Muscle spasm of back; Z79.899 Other long term (current) drug therapy
CPT/HCPCS: 70450; 70553; 71045; 72156; 80048; 80076; 80307; 81001; 83930; 84703; 85025; 85027; 93005; 96372; 97116; 97161; 97530; 99284; A9576; G0480; J1650

== ENCOUNTER → 2021-02-16 | Outpatient (CLI) | payer OTHER ==
[~2021-02-16] MED LIST changes: +PROHANCE 279.3MG/ML 15ML VIAL ONE; +PROHANCE 279.3MG/ML 5ML VIAL ONE
--- NOTE | 2021-02-17 10:04 | REPVR ---
PROCEDURE INFORMATION: Exam: MR Head Without and With Contrast Exam date and time: 02/16/2021 2:33 PM Age: 30 years old Clinical indication: Multiple sclerosis. TECHNIQUE: Imaging protocol: MR of the head without and with intravenous contrast. Contrast material: PROHANCE; Contrast volume: 16 ml; Contrast route: INTRAVENOUS (IV); COMPARISON: MRI-Brain W/O FOLL BY WITH 11/13/2019 6:38 PM FINDINGS: Brain: There are occasional foci of high signal abnormality in the periventricular white matter consistent with demyelinating plaques in this patient with known MS. There is no abnormal enhancement. The appearance is similar to prior study. Cerebral ventricles: Normal. No ventriculomegaly. Bones/joints: Unremarkable. Paranasal sinuses: Normal as visualized. No acute sinusitis. Mastoid air cells: Normal as visualized. No mastoid effusion. Orbital cavity: Unremarkable. Soft tissues: Unremarkable. IMPRESSION: There are occasional foci of high signal abnormality in the periventricular white matter consistent with demyelinating plaques in this patient with known MS. There is no abnormal enhancement. The appearance is similar to prior study. Electronically signed by: Jay Galvez On 02/17/2021 10:03:30 AM
--- NOTE | 2021-02-17 11:02 | REPVR ---
PROCEDURE INFORMATION: Exam: MR Cervical Spine Without and With Contrast Exam date and time: 02/16/2021 2:33 PM Age: 30 years old Clinical indication: Multiple sclerosis. TECHNIQUE: Imaging protocol: Multiplanar magnetic resonance images of the cervical spine without and with contrast. Contrast material: PROHANCE; Contrast volume: 16 ml; Contrast route: INTRAVENOUS (IV); COMPARISON: MRI-C SPINE W/O FOLL BY WITH 11/13/2019 6:57 PM FINDINGS: There is high signal abnormality within the left posterior cervical cord at C3/4 and C5/6. The appearance is similar to prior study. Findings are consistent with demyelinating plaques in this patient with known multiple sclerosis. There is no abnormal enhancement. There is mild disc bulging at C3/4, C4/5, and C5/6, similar to prior study. There is a 1.4 cm complex cystic lesion within the right thyroid lobe, not fully characterized on this exam. The lesion may be larger compared to prior study. IMPRESSION: 1. There is high signal abnormality within the left posterior cervical cord at C3/4 and C5/6. The appearance is similar to prior study. Findings are consistent with demyelinating plaques in this patient with known multiple sclerosis. There is no abnormal enhancement. 2. There is a 1.4 cm complex cystic lesion within the right thyroid lobe, not fully characterized on this exam. The lesion may be larger compared to prior study. Followup thyroid ultrasound is recommended. COMMENTS: Consistent with the [employer]'s Incidental Findings Committee white paper (J Am Kati Radiol 2015): In patients under 35 years old with an incidental thyroid nodule equal to or greater than [address], MRI or extrathyroidal US, further evaluation with dedicated thyroid US is recommended for patients with normal life expectancy and without comorbidities. For smaller nodules without suspicious features, no further evaluation or follow up is recommended. Electronically signed by: Jay Galvez On 02/17/2021 11:01:46 AM
== END ==
LOC: M PLAIMG 12:39
PROVIDERS: ATTEND Psychiatry & Neurology Neurology
DX: G35 Multiple sclerosis (principal)
CPT/HCPCS: 70553; 72156; A9576

== ENCOUNTER → 2021-06-01 | Outpatient (CLI) | payer OTHER, MEDICAID ==
[~2021-06-01] MED LIST changes: -PROHANCE 279.3MG/ML 15ML VIAL ONE; -PROHANCE 279.3MG/ML 5ML VIAL ONE
== END ==
LOC: M WHC 12:47
PROVIDERS: ATTEND Nurse Practitioner Adult Health
DX: N64.4 Mastodynia (principal); E04.1 Nontoxic single thyroid nodule
CPT/HCPCS: 76536; 77066; G0279

== ENCOUNTER → 2021-10-27 | Outpatient (CLI) | payer OTHER ==
[2021-10-27 17:13] LABS: HEMATOCRIT 47.6 % (36.0-47.0); HEMOGLOBIN 15.9 g/dl (12.0-15.5); MEAN CORPUSCULAR HEMOGLOBIN 30.2 pg (27.0-33.0); MEAN CORPUSCULAR HGB CONC 33.4 g/dl (32.0-36.5); MEAN CORPUSCULAR VOLUME 90.5 fl (80.0-96.0); PLATELET COUNT, AUTOMATED 187 10^3/uL (150-450); RED BLOOD COUNT 5.26 10^6/uL (4.00-5.40)
[2021-10-27 21:37] LABS: ALBUMIN 3.8 GM/DL (3.2-5.2); ALT/SGPT 32 U/L (12-78); BILIRUBIN,TOTAL 0.2 MG/DL (0.2-1.0); BLOOD UREA NITROGEN 14 MG/DL (7-18); CARBON DIOXIDE LEVEL 26 MEQ/L (21-32); CHLORIDE LEVEL 110 MEQ/L (98-107); CREATININE FOR GFR 0.69 MG/DL (0.55-1.30); GLOMERULAR FILTRATION RATE > 60.0 (>60); GLUCOSE, FASTING 72 MG/DL (70-100); POTASSIUM SERUM 4.3 MEQ/L (3.5-5.1); SODIUM LEVEL 139 MEQ/L (136-145); TOTAL PROTEIN 6.7 GM/DL (6.4-8.2)
== END ==
LOC: M PLALAB 15:57
PROVIDERS: ATTEND Nurse Practitioner Adult Health
DX: G35 Multiple sclerosis (principal)

== ENCOUNTER → 2021-11-12 | Outpatient (CLI) | payer OTHER | LOC: M PLAIMG 13:47 | PROVIDERS: ATTEND Nurse Practitioner Adult Health | DX: M54.50 Low back pain, unspecified (principal) ==

== ENCOUNTER → 2022-01-25 | Outpatient (CLI) | payer MEDICAID, OTHER ==
[~2022-01-25] MED LIST changes: +ALBU2.5V10 INH; +BUSP30TA PO; +CARB20TA PO; +FEXO-117 PO; +FLUT15.820 NARES; +FLUTISP; +GABA-1171 PO; +GABA-282 PO; +LIDOCAINE 1% MDV 20ML VIAL As Ordered ONE; +OMEP40CA4 PO; +SUMA100T2 PO; +TOPI200T7 PO
[2022-01-25 12:07] VITALS: BP 165/94
== END ==
LOC: M IRPRO 10:05
PROVIDERS: ATTEND Otolaryngology
DX: E04.1 Nontoxic single thyroid nodule (principal)

== ENCOUNTER → 2022-03-02 | Outpatient (CLI) | payer OTHER ==
[~2022-03-02] MED LIST changes: -LIDOCAINE 1% MDV 20ML VIAL As Ordered ONE
[2022-03-02 15:35] LABS: HEMATOCRIT 48.4 % (36.0-47.0); HEMOGLOBIN 15.9 g/dl (12.0-15.5); MEAN CORPUSCULAR HEMOGLOBIN 30.2 pg (27.0-33.0); MEAN CORPUSCULAR HGB CONC 32.9 g/dl (32.0-36.5); MEAN CORPUSCULAR VOLUME 91.8 fl (80.0-96.0); PLATELET COUNT, AUTOMATED 233 10^3/uL (150-450); RED BLOOD COUNT 5.27 10^6/uL (4.00-5.40); WHITE BLOOD COUNT 8.9 10^3/uL (4.0-10.0)
[2022-03-02 18:41] LABS: ALBUMIN 4.3 G/DL (3.2-5.2); ALT/SGPT 33 U/L (7.0-40); BILIRUBIN,TOTAL 0.2 MG/DL (0.3-1.2); BLOOD UREA NITROGEN 13 MG/DL (9-23); CALCIUM LEVEL 9.4 MG/DL (8.5-10.1); CARBON DIOXIDE LEVEL 26 MMOL/L (20-31); CHLORIDE LEVEL 105 MMOL/L (98-107); GLOMERULAR FILTRATION RATE > 60.0 (>60); GLUCOSE, FASTING 96 MG/DL (60-100); POTASSIUM SERUM 4.5 MMOL/L (3.5-5.1); SODIUM LEVEL 140 MMOL/L (136-145); TOTAL PROTEIN 7.1 G/DL
== END ==
LOC: M PLALAB 11:47
PROVIDERS: ATTEND Nurse Practitioner Adult Health
DX: G35 Multiple sclerosis (principal)

== ENCOUNTER → 2022-06-10 | Outpatient (CLI) | payer OTHER ==
[~2022-06-10] MED LIST changes: +PROHANCE 279.3MG/ML 15ML VIAL ONE; +PROHANCE 279.3MG/ML 5ML VIAL ONE
== END ==
LOC: M PLAIMG 09:32
PROVIDERS: ATTEND Psychiatry & Neurology Neurology
DX: G35 Multiple sclerosis (principal)
CPT/HCPCS: 70553; 72156; A9576

== ENCOUNTER 2023-04-22 09:56 | Emergency (ER) | payer OTHER ==
[~2023-04-22] VITALS: Ht 162.6 cm; Wt 90.6 kg
[~2023-04-22 09:56] MED LIST changes: -PROHANCE 279.3MG/ML 15ML VIAL ONE; -PROHANCE 279.3MG/ML 5ML VIAL ONE
[2023-04-22] MEDS ORDERED: BACL1TAB9 PO (10:07)
[2023-04-22] MEDS ORDERED: BACL1TAB8 PO (10:07)
[2023-04-22] MEDS ORDERED: CELE20TA PO (10:08)
[2023-04-22 10:42] LABS: APPEARANCE, URINE CLOUDY (CLEAR); BACTERIA, URINE AUTO 1+ (NEGATIVE); BILIRUBIN, URINE AUTO NEGATIVE (NEGATIVE); BLOOD, URINE BLOOD 3+ (NEGATIVE); COLOR, URINE YELLOW (YELLOW); GLUCOSE, URINE (UA) AUTO NEGATIVE (NEGATIVE); KETONE, URINE AUTO NEGATIVE (NEGATIVE); LEUKOCYTE ESTERASE, URINE AUTO 3+ (NEGATIVE); NITRITE, URINE AUTO NEGATIVE (NEGATIVE); PROTEIN, URINE AUTO 2+ mg/dL (NEGATIVE); RBC, URINE AUTO TNTC /HPF (0-3); SPECIFIC GRAVITY URINE AUTO 1.013 (1.002-1.035); SQUAMOUS EPITHELIAL CELL UR AU 0 /HPF (0-6); UROBILINOGEN, URINE AUTO 0.2 mg/dL (0.0-2.0); WBC, URINE AUTO TNTC /HPF (0-3)
[2023-04-22 12:09] LABS: BASO % 0.4 % (0.0-1.0); EOS # 0.2 10^3/uL (0.0-0.5); EOS % 1.4 % (0.0-3.0); HEMATOCRIT 47.6 % (36.0-47.0); HEMOGLOBIN 15.5 g/dl (12.0-15.5); LYMPH # 1.3 10^3/uL (1.5-5.0); MEAN CORPUSCULAR HEMOGLOBIN 29.8 pg (27.0-33.0); MEAN CORPUSCULAR HGB CONC 32.6 g/dl (32.0-36.5); MEAN CORPUSCULAR VOLUME 91.5 fl (80.0-96.0); MONO # 0.6 10^3/uL (0.0-0.8); MONO % 5.1 % (2.0-8.0); NEUTROPHILS # 8.9 10^3/uL (1.5-8.5); NEUTROPHILS % 80.7 % (36.0-66.0); PLATELET COUNT, AUTOMATED 226 10^3/uL (150-450); WHITE BLOOD COUNT 11.1 10^3/uL (4.0-10.0)
[2023-04-22 12:28] LABS: LIPASE 30 U/L (12-53)
[2023-04-22 12:30] LABS: ALBUMIN 3.9 G/DL (3.2-5.2); ALKALINE PHOSPHATASE 119 U/L (46-116); ALT/SGPT 32 U/L (7.0-40); AST/SGOT 25 U/L (<34); BILIRUBIN,DIRECT < 0.1 MG/DL (<0.4); BILIRUBIN,TOTAL 0.2 MG/DL (0.3-1.2); BLOOD UREA NITROGEN 10 MG/DL (9-23); CALCIUM LEVEL 8.9 MG/DL (8.5-10.1); CARBON DIOXIDE LEVEL 26 MMOL/L (20-31); CHLORIDE LEVEL 109 MMOL/L (98-107); CREATININE FOR GFR 0.66 MG/DL (0.55-1.30); GLOMERULAR FILTRATION RATE > 60.0 (>60); GLUCOSE, FASTING 97 MG/DL (60-100); POTASSIUM SERUM 4.3 MMOL/L (3.5-5.1); SODIUM LEVEL 140 MMOL/L (136-145); TOTAL PROTEIN 6.8 G/DL (5.7-8.2)
[2023-04-22] MEDS ORDERED: KETOROLAC 30 MG/ML 1ML VIAL IV ONE (12:35)
[2023-04-22] MEDS ORDERED: NS 500 ML IV ONE (12:35)
[2023-04-22] MEDS ORDERED: cefTRIAXone SOD 1 GM in D5W MINI-BAG PLUS 50 ML IV ONE (12:35)
[2023-04-22] MEDS ORDERED: ONDANSETRON 4MG 2ML VIAL IV ONE (12:35)
[2023-04-22] MEDS ORDERED: KETO10TAB PO (13:47)
[2023-04-22] MEDS ORDERED: CEPH500C PO (13:47)
[2023-04-22] MEDS ORDERED: ONDA4TAB6 PO (13:47)
[2023-04-22 13:54] VITALS: BP 133/73; TEMP 98.1; O2SAT 98
== END 2023-04-22 13:59 | disposition home or self-care (01) ==
LOC: M ED 09:56
DX: N20.0 Calculus of kidney (principal); N39.0 Urinary tract infection, site not specified; F41.9 Anxiety disorder, unspecified; F32.A Depression, unspecified; J45.909 Unspecified asthma, uncomplicated; J44.9 Chronic obstructive pulmonary disease, unspecified; F17.210 Nicotine dependence, cigarettes, uncomplicated; Z79.51 Long term (current) use of inhaled steroids; Z79.899 Other long term (current) drug therapy
CPT/HCPCS: 76775; 80048; 80076; 81001; 83690; 84702; 85025; 96365; 96375; 99284; J0696; J1885; J2405

== ENCOUNTER → 2023-05-19 | Outpatient (REF) | payer OTHER ==
[~2023-05-19] MED LIST changes: +BACL1TAB8 PO; +BACL1TAB9 PO; +CELE20TA PO; +CEPH500C PO; +KETO10TAB PO; +ONDA4TAB6 PO
[2023-05-19 14:35] LABS: BASO # 0.1 10^3/uL (0.0-0.2); BASO % 0.7 % (0.0-1.0); EOS # 0.2 10^3/uL (0.0-0.5); EOS % 2.6 % (0.0-3.0); HEMATOCRIT 45.9 % (36.0-47.0); HEMOGLOBIN 15.2 g/dl (12.0-15.5); LYMPH # 2.1 10^3/uL (1.5-5.0); LYMPH % 29.2 % (24.0-44.0); MEAN CORPUSCULAR HEMOGLOBIN 30.4 pg (27.0-33.0); MEAN CORPUSCULAR HGB CONC 33.1 g/dl (32.0-36.5); MEAN CORPUSCULAR VOLUME 91.8 fl (80.0-96.0); MONO # 0.4 10^3/uL (0.0-0.8); NEUTROPHILS # 4.3 10^3/uL (1.5-8.5); NEUTROPHILS % 61.2 % (36.0-66.0); PLATELET COUNT, AUTOMATED 215 10^3/uL (150-450); TOTAL 25(OH) VITAMIN D 26.3 NG/ML (20.0-100.0); WHITE BLOOD COUNT 7.1 10^3/uL (4.0-10.0)
[2023-05-19 14:37] LABS: THYROID STIMULATING HORMONE 1.314 uIU/ML (0.55-4.78)
[2023-05-19 14:38] LABS: ALBUMIN 3.9 G/DL (3.2-5.2); ALKALINE PHOSPHATASE 110 U/L (46-116); ALT/SGPT 19 U/L (7.0-40); AST/SGOT 14 U/L (<34); BILIRUBIN,TOTAL 0.3 MG/DL (0.3-1.2); BLOOD UREA NITROGEN 14 MG/DL (9-23); CALCIUM LEVEL 8.9 MG/DL (8.5-10.1); CARBON DIOXIDE LEVEL 28 MMOL/L (20-31); CHLORIDE LEVEL 110 MMOL/L (98-107); CHOLESTEROL LEVEL 157 MG/DL (<200); CHOLESTEROL RISK RATIO 3.52 (<5); CREATININE FOR GFR 0.73 MG/DL (0.55-1.30); GLOMERULAR FILTRATION RATE > 60.0 (>60); GLUCOSE, FASTING 113 MG/DL (60-100); HDL CHOLESTEROL 44.5 MG/DL (>40); LDL CHOLESTEROL 83.5 MG/DL (<100); MAGNESIUM LEVEL 2.1 MG/DL (1.8-2.4); NON-HDL-C 112.5 MG/DL; POTASSIUM SERUM 4.3 MMOL/L (3.5-5.1); SODIUM LEVEL 140 MMOL/L (136-145); TOTAL PROTEIN 6.6 G/DL (5.7-8.2); TRIGLYCERIDES LEVEL 145 MG/DL (<150)
[2023-05-19 14:59] LABS: HEMOGLOBIN A1c 5.1 % (4.0-6.0)
== END ==
LOC: M LAB REF 12:34
PROVIDERS: ATTEND Physician Assistant
DX: Z00.00 Encounter for general adult medical examination without abnormal findings (principal); Z68.34 Body mass index [BMI] 34.0-34.9, adult; G44.229 Chronic tension-type headache, not intractable

== ENCOUNTER → 2023-05-23 | Outpatient (CLI) | payer OTHER, MEDICAID | LOC: M PLAIMG 12:30 | PROVIDERS: ATTEND Physician Assistant | DX: R05.9 Cough, unspecified (principal) ==

== ENCOUNTER → 2023-05-31 | Outpatient (CLI) | payer OTHER | LOC: M PLAIMG 10:28 | PROVIDERS: ATTEND Physician Assistant | DX: N20.0 Calculus of kidney (principal) ==

== ENCOUNTER → 2023-07-06 | Outpatient (REF) | payer OTHER, MEDICAID | LOC: M LAB REF 16:37 | PROVIDERS: ATTEND Physician Assistant | DX: Z12.4 Encounter for screening for malignant neoplasm of cervix (principal) ==

== ENCOUNTER → 2023-07-27 | Outpatient (REF) | payer OTHER, MEDICAID ==
[~2023-07-27] MED LIST changes: +CARB10TACH PO; +TOPI100T9 PO
[2023-07-27 17:14] LABS: BASO % 0.6 % (0.0-1.0); EOS # 0.2 10^3/uL (0.0-0.5); HEMOGLOBIN 14.7 g/dl (12.0-15.5); LYMPH # 2.1 10^3/uL (1.5-5.0); LYMPH % 29.6 % (24.0-44.0); MEAN CORPUSCULAR HEMOGLOBIN 30.2 pg (27.0-33.0); MEAN CORPUSCULAR HGB CONC 33.4 g/dl (32.0-36.5); MEAN CORPUSCULAR VOLUME 90.3 fl (80.0-96.0); MONO # 0.6 10^3/uL (0.0-0.8); MONO % 7.9 % (2.0-8.0); NEUTROPHILS # 4.1 10^3/uL (1.5-8.5); NEUTROPHILS % 58.8 % (36.0-66.0); PLATELET COUNT, AUTOMATED 205 10^3/uL (150-450); RED BLOOD COUNT 4.87 10^6/uL (4.00-5.40)
[2023-07-27 17:16] LABS: AMORPHOUS SEDIMENT SMALL (NEGATIVE); BACTERIA, URINE AUTO NEGATIVE (NEGATIVE); RBC, URINE AUTO 0 /HPF (0-3); SQUAMOUS EPITHELIAL CELL UR AU 0 /HPF (0-6); WBC, URINE AUTO 2 /HPF (0-3)
[2023-07-27 17:34] LABS: BLOOD UREA NITROGEN 11 MG/DL (9-23); CALCIUM LEVEL 9.1 MG/DL (8.5-10.1); CARBON DIOXIDE LEVEL 27 MMOL/L (20-31); CHLORIDE LEVEL 109 MMOL/L (98-107); CREATININE FOR GFR 0.73 MG/DL (0.55-1.30); GLOMERULAR FILTRATION RATE > 60.0 (>60); GLUCOSE, FASTING 103 MG/DL (60-100); POTASSIUM SERUM 4.1 MMOL/L (3.5-5.1); SODIUM LEVEL 141 MMOL/L (136-145)
== END ==
LOC: M LAB REF 16:15
PROVIDERS: ATTEND Physician Assistant
DX: Z01.89 Encounter for other specified special examinations (principal)

== ENCOUNTER 2023-08-04 09:09 | Day surgery (SDC) | payer OTHER ==
[~2023-08-04] VITALS: Ht 162.6 cm; Wt 88.3 kg
[2023-08-04] MEDS ORDERED: LR 1,000 ML IV SCH (09:55)
[2023-08-04] MEDS ORDERED: DIAZ5TAB PO (09:57)
[2023-08-04] MEDS ORDERED: MIDAZOLAM INJ 2MG/2ML VIAL As Ordered ONE (10:01)
[2023-08-04] MEDS ORDERED: fentaNYL 100 MCG/2 ML INJECTION As Ordered ONE (10:01)
[2023-08-04] MEDS ORDERED: LIDOCAINE 2% 100MG/5ML SDV (FOR ANES.) As Ordered ONE (10:01)
[2023-08-04] MEDS ORDERED: propofoL 200 MG/20 ML VIAL As Ordered ONE (10:03)
[2023-08-04] MEDS ORDERED: OXYC1TAB23 PO (10:39)
[2023-08-04] MEDS ORDERED: FLOM0.4C39 PO (10:39)
[2023-08-04] MEDS: ceFAZolin SOD 2 GM in IV 1 EA IV ONE (10:43)
[2023-08-04] MEDS ORDERED: ACETAMINOPHEN 1000MG 100ML IV BAG As Ordered ONE (10:52)
[2023-08-04 12:45] VITALS: BP 136/80; TEMP 97; O2SAT 99
== END 2023-08-04 12:45 | disposition home or self-care (01) ==
LOC: M SDC 09:09
PROVIDERS: ATTEND Urology
DX: N20.0 Calculus of kidney (principal); R06.02 Shortness of breath; F17.210 Nicotine dependence, cigarettes, uncomplicated; Z79.899 Other long term (current) drug therapy
CPT/HCPCS: 50590; 74018; J0131; J0690; J2250; J3010

== ENCOUNTER → 2023-08-30 | Outpatient (REF) | payer OTHER ==
[~2023-08-30] MED LIST changes: +DIAZ5TAB PO; +FLOM0.4C39 PO
== END ==
LOC: M LAB REF 17:33
PROVIDERS: ATTEND Physician Assistant
DX: Z12.4 Encounter for screening for malignant neoplasm of cervix (principal)

== ENCOUNTER → 2023-09-15 | Outpatient (CLI) | payer OTHER | LOC: M PLAIMG 15:00 | PROVIDERS: ATTEND Physician Assistant | DX: N20.0 Calculus of kidney (principal) ==

== ENCOUNTER → 2024-04-27 | Outpatient (CLI) | payer MEDICARE, OTHER ==
[~2024-04-27] MED LIST changes: -FEXO-117 PO; +FEXO-193 PO; +GABA-1172 PO; -GABA-282 PO; +ONDA-282 PO; -ONDA4TAB6 PO
== END ==
LOC: M WHC 11:48
PROVIDERS: ATTEND Physician Assistant
DX: N92.6 Irregular menstruation, unspecified (principal); N83.291 Other ovarian cyst, right side; D25.1 Intramural leiomyoma of uterus

== ENCOUNTER → 2024-11-05 | Outpatient (CLI) | payer MEDICARE, OTHER ==
[~2024-11-05] MED LIST changes: -FLOM0.4C39 PO; +TAMS-18 PO; +TOPI-14 PO; +TOPI-257 PO; -TOPI100T9 PO; -TOPI200T7 PO
== END ==
LOC: M RAD 13:04
PROVIDERS: ATTEND Physician Assistant
DX: M25.561 Pain in right knee (principal); M25.562 Pain in left knee

== ENCOUNTER → 2024-11-27 | Outpatient (CLI) | payer MEDICARE, OTHER ==
[~2024-11-27] MED LIST changes: +PROHANCE 279.3MG/ML 15ML VIAL ONE; +PROHANCE 279.3MG/ML 5ML VIAL ONE
== END ==
LOC: M PLAIMG 13:10
PROVIDERS: ATTEND Psychiatry & Neurology Neurology
DX: G35 Multiple sclerosis (principal); M47.812 Spondylosis without myelopathy or radiculopathy, cervical region
CPT/HCPCS: 70553; 72156; A9576

== ENCOUNTER → 2024-12-03 | Outpatient (CLI) | payer MEDICARE, OTHER ==
[~2024-12-03] MED LIST changes: -PROHANCE 279.3MG/ML 15ML VIAL ONE; -PROHANCE 279.3MG/ML 5ML VIAL ONE
== END ==
LOC: M PLAIMG 14:36
PROVIDERS: ATTEND Physician Assistant
DX: R01.1 Cardiac murmur, unspecified (principal)